=== PATIENT | female | born 1980 | race Caucasian/White ===

== ENCOUNTER → 2018-05-11 10:04 | Outpatient (CLI) | payer OTHER, SELFPAY ==
[2018-05-11 10:56] LABS: Hematocrit 44.3 % (37-47); Hemoglobin 14.6 g/dl (12.0-15.0); Mean Corpuscular Hgb 28.9 pg (27.0-32.0); Mean Corpuscular Volume 87.5 fL (81-99); Mean Platelet Vol. 9.1 fl (6.2-12.0); Platelet Count 361 K/mm3 (150-450); RBC Distribution Width CV 13.5 % (11.6-14.6); RBC Distribution Width SD 42.5 fl (35.1-43.9); Red Blood Count 5.06 M/mm3 (4.2-5.4); White Blood Count 6.7 K/mm3 (4.4-11.0)
[2018-05-11 10:58] LABS: Scan Indicated on CBC? Y/N NO
[2018-05-11 11:18] LABS: Hemoglobin A1c 5.6 % (4.2-6.3)
[2018-05-11 11:35] LABS: Free T3 3.8 pg/mL (2.18-3.98)
[2018-05-12 08:41] LABS: DHEA Sulfate 460.8 ug/dL (57.3-279.2)
[2018-05-13 13:24] LABS: HPV Reflexed? NOT INDICATED
== END ==
PROVIDERS: Visit Provider Obstetrics & Gynecology
DX: Z12.4 Encounter for screening for malignant neoplasm of cervix (principal); N92.6 Irregular menstruation, unspecified
CPT/HCPCS: 36415; 82533; 82627; 83036; 84439; 84443; 84481; 85027; 88175; 82626; G0145

== ENCOUNTER → 2018-09-07 09:08 | Outpatient (CLI) | payer OTHER, SELFPAY ==
[2018-09-07 10:46] LABS: Hematocrit 45.4 % (37-47); Hemoglobin 14.8 g/dl (12.0-15.0); Mean Corp Hgb Conc 32.6 g/gl (32-36); Mean Corpuscular Hgb 29.5 pg (27.0-32.0); Mean Corpuscular Volume 90.6 fL (81-99); Mean Platelet Vol. 9.3 fl (6.2-12.0); Platelet Count 345 K/mm3 (150-450); RBC Distribution Width SD 45.7 fl (35.1-43.9); Red Blood Count 5.01 M/mm3 (4.2-5.4); White Blood Count 7.3 K/mm3 (4.4-11.0)
[2018-09-07 10:47] LABS: Scan Indicated on CBC? Y/N NO
[2018-09-07 11:06] LABS: Free T3 3.8 pg/mL (2.18-3.98); T4 Free Direct 1.16 ng/dL (0.76-1.46); Thyroid Stim Hormone (TSH) 1.65 uIU/mL (0.358-3.74)
[2018-09-07 11:09] LABS: Hemoglobin A1c 5.7 % (4.2-6.3)
[2018-09-08 09:55] LABS: DHEA Sulfate 164.1 ug/dL (57.3-279.2)
--- OUTSIDE RECORDS SUMMARY | 2018-11-12 00:47 | XMS RPT_ITS ---
:1980 Author Organization [facility] Care Team Providers Name Role Phone Noemi Colbert Attending Unavailable Cebul IIIJose Primary Care Unavailable Noemi Colbert Attending Unavailable PROBLEMS PROBLEMS DATE TYPE CONDITION / CODE ATTENDING STATUS SOURCE 09/07/2018 Unknown N93.8 - Other Noemi Colbert specified Community abnormal uterine Hospital and vaginal Repository bleeding / N93.8(ICD-10) 09/07/2018 Unknown R63.5 - Abnormal Noemi Colbert weight gain / Community R63.5(ICD-10) Hospital Repository 05/11/2018 Unknown N92.6 - Irregular Noemi Colbert menstruation, Community unspecified / Hospital N92.6(ICD-10) Repository 05/11/2018 Unknown Z12.4 - Encounter Noemi Colbert for screening for [facility] malignant Hospital neoplasm of Repository cervix / Z12.4(ICD-10) PROCEDURES PROCEDURES No Procedure Records FoundRESULTS RESULTS CBC-COMPLETE BLOOD CNT Collected: 09/07/2018 Status: F Source: [place] NO DIFF 9:18 AM [facility] REPOSITORY TYPE CODE TESTS RESULT OUT OF RANGE REFERENCE UNITS LAB L100.1000 4.4-11.0 K/mm3 Normal WBC 7.3 LAB L100.1200 4.2-5.4 M/mm3 Normal RBC 5.01 LAB L100.1300 12.0-15.0 g/dl Normal HGB 14.8 LAB L100.1400 37-47 % Normal HCT 45.4 LAB L100.1500 81-99 fL Normal MCV 90.6 LAB L100.1600 27.0-32.0 pg Normal MCH 29.5 LAB L100.1700 32-36 g/gl Normal MCHC 32.6 LAB L100.1810 11.6-14.6 % Normal RDW CV 14.0 LAB L100.1820 35.1-43.9 fl High RDW SD 45.7 LAB L100.1900 150-450 K/mm3 Normal PLT 345 LAB L100.2000 6.2-12.0 fl Normal MPV 9.3 Performed By: #### L100.0500 #### [facility] [address] [place], [address] CORTISOL SERUM Collected: 09/07/2018 Status: F Source: [place] 9:18 AM [facility] REPOSITORY TYPE CODE TESTS RESULT OUT OF REFERENCE UNITS RANGE LAB L509.6000 3.09-22.40 ug/dL High CORTISOL 26.50 Result Comment: Adult (AM) 4.30 - 22.40 ug/dL Adult (PM) 3.09 - 16.66 ug/dL Performed By: #### L509.6000 #### [facility] [address] [place], [place], [address] FREE T3 Collected: 09/07/2018 Status: F Source: [place] 9:18 AM [facility] REPOSITORY TYPE CODE TESTS RESULT OUT OF RANGE REFERENCE UNITS LAB L501.29386 2.18-3.98 pg/mL Normal FREE T3 3.8 Performed By: #### L501.61018, L501.9520, L506.0400 #### [facility] [address] [place], [address] THYROID STIM HORMONE Collected: 09/07/2018 Status: F Source: [place] (TSH) 9:18 AM [facility] REPOSITORY TYPE CODE TESTS RESULT OUT OF RANGE REFERENCE UNITS LAB L501.9520 0.358-3.74 uIU/mL Normal TSH 1.65 Performed By: #### L501.85637, L501.9520, L506.0400 #### [facility] [address] [place], [address] T4 FREE DIRECT Collected: 09/07/2018 Status: F Source: [place] 9:18 AM [facility] REPOSITORY TYPE CODE TESTS RESULT OUT OF RANGE REFERENCE UNITS LAB L506.0400 0.76-1.46 ng/dL Normal T4 FREE 1.16 DIRECT Performed By: #### L501.71627, L501.9520, L506.0400 #### [facility] [address] [place], [address] HEMOGLOBIN A1C Collected: 09/07/2018 Status: F Source: [place] 9:18 AM [facility] REPOSITORY TYPE CODE TESTS RESULT OUT OF RANGE REFERENCE UNITS LAB L501.9985 4.2-6.3 % Normal HGB A1C 5.7 Performed By: #### L501.9985 #### [facility] [address] [facility] [place], [address] DHEA SULFATE Collected: 09/07/2018 Status: F Source: [place] 9:18 AM [facility] REPOSITORY Order Comment: Has Patient had Radioactive Injection for X-ray?: N TYPE CODE TESTS RESULT OUT OF RANGE REFERENCE UNITS LAB L3300.1500 57.3-279.2 ug/dL Normal DHEA SULF 164.1 4020 Result Comment: Performed at: [facility] [address] [id number] Crtt: Ari Pettit PhD, Phone: [phone] Performed By: #### L3300.1500 #### [facility] (refer to report for specific site) refer to report for address and phone number CBC-COMPLETE BLOOD CNT Collected: 05/11/2018 Status: F Source: [place] NO DIFF 10:07 AM [facility] REPOSITORY TYPE CODE TESTS RESULT OUT OF RANGE REFERENCE UNITS LAB L100.1000 4.4-11.0 K/mm3 Normal WBC 6.7 LAB L100.1200 4.2-5.4 M/mm3 Normal RBC 5.06 LAB L100.1300 12.0-15.0 g/dl Normal HGB 14.6 LAB L100.1400 37-47 % Normal HCT 44.3 LAB L100.1500 81-99 fL Normal MCV 87.5 LAB L100.1600 27.0-32.0 pg Normal MCH 28.9 LAB L100.1700 32-36 g/gl Normal MCHC 33.0 LAB L100.1810 11.6-14.6 % Normal RDW CV 13.5 LAB L100.1820 35.1-43.9 fl Normal RDW SD 42.5 LAB L100.1900 150-450 K/mm3 Normal PLT 361 LAB L100.2000 6.2-12.0 fl Normal MPV 9.1 Performed By: #### L100.0500 #### [facility] [address] [place], [place], [address] HEMOGLOBIN A1C Collected: 05/11/2018 Status: F Source: [place] 10:07 AM [facility] REPOSITORY TYPE CODE TESTS RESULT OUT OF RANGE REFERENCE UNITS LAB L501.9985 4.2-6.3 % Normal HGB A1C 5.6 Performed By: #### L501.9985 #### [facility] [facility] [place], [address] CORTISOL SERUM Collected: 05/11/2018 Status: F Source: [place] 10:07 AM [facility] REPOSITORY TYPE CODE TESTS RESULT OUT OF REFERENCE UNITS RANGE LAB L509.6000 3.09-22.40 ug/dL High CORTISOL 28.90 Result Comment: Adult (AM) 4.30 - 22.40 ug/dL Adult (PM) 3.09 - 16.66 ug/dL Performed By: #### L509.6000 #### [facility] [address] [place], [address] FREE T3 Collected: 05/11/2018 Status: F Source: [place] 10:07 AM [facility] REPOSITORY TYPE CODE TESTS RESULT OUT OF RANGE REFERENCE UNITS LAB L501.71191 2.18-3.98 pg/mL Normal FREE T3 3.8 Performed By: #### L501.36464, L501.9520, L506.0400 #### [facility] [address] [place], [address] THYROID STIM HORMONE Collected: 05/11/2018 Status: F Source: [place] (TSH) 10:07 AM [facility] REPOSITORY TYPE CODE TESTS RESULT OUT OF RANGE REFERENCE UNITS LAB L501.9520 0.358-3.74 uIU/mL Normal TSH 2.50 Performed By: #### L501.18203, L501.9520, L506.0400 #### [facility] [address] [facility] [place], [address] T4 FREE DIRECT Collected: 05/11/2018 Status: F Source: [place] 10:07 AM [facility] REPOSITORY TYPE CODE TESTS RESULT OUT OF RANGE REFERENCE UNITS LAB L506.0400 0.76-1.46 ng/dL Normal T4 FREE 1.10 DIRECT Performed By: #### L501.89017, L501.9520, L506.0400 #### [facility] [address] [place], [place], [address] DHEA SULFATE Collected: 05/11/2018 Status: F Source: [place] 10:07 AM [facility] REPOSITORY Order Comment: Has Patient had Radioactive Injection for X-ray?: N TYPE CODE TESTS RESULT OUT OF RANGE REFERENCE UNITS LAB L3300.1500 57.3-279.2 ug/dL High DHEA SULF 460.8 4020 Result Comment: Performed at: [facility] [address] [id number] Crtt: Ari Pettit PhD, Phone: [phone] Performed By: #### L3300.1500 #### [facility] (refer to report for specific site) refer to report for address and phone number PAP I-G W/RFX HRHPV Collected: 05/11/2018 Status: F Source: [place] 9:30 AM [facility] REPOSITORY Order Comment: CYTOLOGY INFORMATION: - CLINICAL INFORMATION: - DATE LMP/MENOPAUSE: 04/20/18 LMP - COLLECTION VIAL: Thin Prep Vial - 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 of containers..01 ThinPrep Vial TYPE CODE TESTS RESULT OUT OF RANGE REFERENCE UNITS LAB L7400.0800 . Normal DIAGN Comment Result Comment: NEGATIVE FOR INTRAEPITHELIAL LESION AND MALIGNANCY. LAB L7400.0900 . Normal ADEQ Comment Result Comment: Satisfactory for evaluation. Endocervical and/or squamous metaplastic cells (endocervical component) are present. LAB L7400.1400 . Normal PERFORM Comment Result Comment: Meron Will, Compliance And Control Analyst (ASCP) LAB L7400.2575 . Normal TEST METHOD Comment Result Comment: This liquid based ThinPrep(R) pap test was screened with the use of an image guided system. LAB L7400.2600 . Normal . COMM LAB L7400.2700 . Normal PAPSMR Comment Result Comment: The Pap smear is a screening test designed to aid in the detection of premalignant and malignant conditions of the uterine cervix. It is not a diagnostic procedure and should not be used as the sole means of detecting cervical cancer. Both false-positive and false-negative reports do occur. LAB L7400.2800 . Normal HPV RFLX Comment Result Comment: The HPV DNA reflex criteria were not met with this specimen result therefore, no HPV testing was performed. Performed at: [facility] [address] [id number] Crtt: Lidia Alcantara MD, Phone: [phone] Performed By: #### L7400.0350 #### [facility] (refer to report for specific site) refer to report for address and phone number ALLERGIES ALLERGIES No Allergies Records FoundENCOUNTERS ENCOUNTERS ADMIT/DISCHARGE ACCOUNT ADMITTING ENCOUNTER LOCATION SOURCE NUMBER CLASS 09/07/2018 [id number] Ambulatory [facility] ing:LAB.FUTUR Repository E 05/11/2018 [id number] [facility] ing:WOBLAB Repository PAYERS PAYERS ENCOUNTER GUARANTOR PAYER SUBSCRIBER SOURCE 09/07/2018 ROSALIA Cline Primary ROSALIA Kemp [id number] Number: [id number] [address]Amu: [phone] [id number] Repository [phone] () Date:[id number] [address] [place] [phone]: 09/07/2018 Secondary NOT GIVENUNK [place] Insurance:SELF PAY [facility] Number: Effective Repository Date:2018-09-01 05/11/2018 Rosalia Florentino [facility] [place] Number: [id number] [id number]: [phone] [id number] Repository [phone] () Date:[id number] [address] [place] [phone]: 05/11/2018 Secondary NOT GIVENUNK [place] Insurance:SELF PAY [facility] Number: Effective Repository Date:2018-05-11
== END ==
PROVIDERS: Visit Provider Obstetrics & Gynecology
DX: N93.8 Other specified abnormal uterine and vaginal bleeding (principal); R63.5 Abnormal weight gain
CPT/HCPCS: 36415; 82533; 82627; 83036; 84439; 84443; 84481; 85027; 82626